=== PATIENT | male | born 1960 | race Caucasian/White ===

== ENCOUNTER 2020-05-28 16:25 | Emergency (ER) | payer MEDICARE, MEDICAID ==
[~2020-05-28] VITALS: Ht 175 cm; Wt 79.0 kg
--- NOTE | 2020-05-28 17:48 | ED Integumentary General ---
General Stated Complaint: POSS ABSCESS ON BOTTOM Source: patient Exam Limitations: no limitations History of Present Illness Date Seen by Provider: May 28, 2020 Time Seen by Provider: 17:44 Initial Comments To ER by private vehicle from [facility] in [place] with reports of a perineal abscess. He presented there today. He states that he is currently on an antibiotic for a dental infection but he doesn't know the name of it. He does have HIV and is compliant with medications. Dr. Salas called to report that he would be coming to the ER, she states that his viral load was undetectable and his CD 4 count was over a thousand. He denies any fevers or chills. He states that it has been draining. This will be the third time that he's had an episode like this, typically he gets these lanced. This is left buttocks/perineal region. He most recently used methamphetamine 1 week ago. Timing/Duration: constant Severity: moderate Associated Symptoms: denies symptoms Allergies and Home Medications Allergies Coded Allergies: Penicillins (Verified Allergy, Unknown, 05/28/20) Patient Home Medication List Home Medication List Reviewed: Yes Review of Systems Review of Systems Constitutional: see HPI; No chills, No fever EENTM: see HPI Respiratory: no symptoms reported Cardiovascular: no symptoms reported Genitourinary: no symptoms reported Musculoskeletal: no symptoms reported Skin: see HPI Psychiatric/Neurological: No Symptoms Reported Endocrine: No Symptoms Reported Hematologic/Lymphatic: No Symptoms Reported Past Xhlsxnd-Kwanho-Fhnzkk Hx Patient Social History Recent Foreign Travel: No Contact w/Someone Who Travel: No Physical Exam Vital Signs Vital Signs - First Documented 05/28/20 17:50 Temp 36.2 Pulse 81 Resp 20 B/P (MAP) 145/101 (116) Pulse Ox 95 O2 Delivery Room Air Capillary Refill : General Appearance: WD/WN, no apparent distress Neck: non-tender, full range of motion Respiratory: no respiratory distress, no accessory muscle use Gastrointestinal: normal bowel sounds, non tender, soft Neurologic/Psychiatric: alert, normal mood/affect, oriented x 3 Skin: normal color, warm/dry Skin Problem Character: abscess, other (left perineum there is a ping-pong ball sized area of erythema with 2 draining punctum. There was some necrotic tissue hanging out from these which was debrided with scissors. There is no moist drainage. There is no fluctuance to suggest a drainable abscess.) Progress/Results/Core Measures Results/Orders Lab Results Laboratory Tests Test 05/28/20 18:07 Range/Units White Blood Count 7.5 4.3-11.0 10^3/uL Red Blood Count 4.68 4.35-5.85 10^6/uL Hemoglobin 14.2 13.3-17.7 G/DL Hematocrit 42 40-54 % Mean Corpuscular Volume 89 80-99 FL Mean Corpuscular Hemoglobin 30 25-34 PG Mean Corpuscular Hemoglobin Concent 34 32-36 G/DL Red Cell Distribution Width 12.4 10.0-14.5 % Platelet Count 325 130-400 10^3/uL Mean Platelet Volume 8.4 7.4-10.4 FL Neutrophils (%) (Auto) 58 42-75 % Lymphocytes (%) (Auto) 27 12-44 % Monocytes (%) (Auto) 8 0-12 % Eosinophils (%) (Auto) 6 0-10 % Basophils (%) (Auto) 1 0-10 % Neutrophils # (Auto) 4.4 1.8-7.8 X 10^3 Lymphocytes # (Auto) 2.0 1.0-4.0 X 10^3 Monocytes # (Auto) 0.6 0.0-1.0 X 10^3 Eosinophils # (Auto) 0.5 H 0.0-0.3 10^3/uL Basophils # (Auto) 0.1 0.0-0.1 10^3/uL Sodium Level 134 L 135-145 MMOL/L Potassium Level 4.8 3.6-5.0 MMOL/L Chloride Level 100 98-107 MMOL/L Carbon Dioxide Level 25 21-32 MMOL/L Anion Gap 9 5-14 MMOL/L Blood Urea Nitrogen 20 H 7-18 MG/DL Creatinine 1.34 H 0.60-1.30 MG/DL Estimat Glomerular Filtration Rate 54 BUN/Creatinine Ratio 15 Glucose Level 142 H 70-105 MG/DL Lactic Acid Level 1.62 0.50-2.00 MMOL/L Calcium Level 9.2 8.5-10.1 MG/DL Corrected Calcium 9.5 8.5-10.1 MG/DL Total Bilirubin 0.2 0.1-1.0 MG/DL Aspartate Amino Transf (AST/SGOT) 19 5-34 U/L Alanine Aminotransferase (ALT/SGPT) 15 0-55 U/L Alkaline Phosphatase 102 40-136 U/L Total Protein 7.5 6.4-8.2 GM/DL Albumin 3.6 3.2-4.5 GM/DL My Orders Orders - SHAILESH CHILDRESS APRN Cbc With Automated Diff (05/28/20 17:42) Comprehensive Metabolic Panel (05/28/20 17:42) Lactic Acid Analyzer (05/28/20 17:42) Blood Culture (05/28/20 17:42) Ct Pelvis W (05/28/20 17:42) Wound Culture (05/28/20 17:42) Iohexol Injection (Omnipaque 350 Mg/Ml 1 (05/28/20 18:45) Received Contrast (Hold Metformin- Contr (05/28/20 18:45) Ns (Ivpb) (Sodium Chloride 0.9% Ivpb Bag (05/28/20 18:45) Iohexol Injection (Omnipaque 350 Mg/Ml 1 (05/28/20 19:00) Received Contrast (Hold Metformin- Contr (05/28/20 19:00) Ns (Ivpb) (Sodium Chloride 0.9% Ivpb Bag (05/28/20 19:00) Doxycycline Hyclate Tablet (Vibramycin T (05/28/20 19:30) Medications Given in ED Current Medications Medications Dose Ordered Sig/Moriah Route Start Time Stop Time Status Last Admin Dose Admin Iohexol 100 ml ONCE ONCE IV 05/28/20 18:45 05/28/20 18:51 DC 05/28/20 18:55 100 ML Sodium Chloride 100 ml ONCE ONCE IV 05/28/20 18:45 05/28/20 18:51 DC 05/28/20 18:55 100 ML Vital Signs/I&O 05/28/20 17:50 Temp 36.2 Pulse 81 Resp 20 B/P (MAP) 145/101 (116) Pulse Ox 95 O2 Delivery Room Air Diagnostic Imaging Diagonstic Imaging: CT Comments NAME: MICHAEL LOPEZ [facility] REC#: [id number] PT STATUS: REG ER : 1960 PHYSICIAN: SHAILESH CHILDRESS APRN ADMIT DATE: 05/28/20/ER Draft Date of Exam:05/28/20 CT PELVIS W PROCEDURE: CT pelvis with contrast. TECHNIQUE: Oral and intravenous contrast were administered with pelvic CT performed. Auto Exposure Controls were utilized during the CT exam to meet ALARA standards for radiation dose reduction. INDICATION: Perineal abscess. COMPARISON: None. FINDINGS: No perianal or perirectal fluid collections or significant inflammatory changes are identified. There is soft tissue stranding and a couple of tiny locules of gas along the left gluteal cleft distally which is not entirely included on the jjxrh-rp-ncyu. No fistulous tracts are identified by CT connecting these inflammatory changes to the anus or rectum. The visualized pelvic contents demonstrate no acute findings. No free intraperitoneal air/fluid, lymphadenopathy or evidence of bowel obstruction within the cncqx-pb-mifj. IMPRESSION: Inflammatory changes along the left gluteal fold are not entirely included in the hjebb-rl-cbek. There are a couple of locules of gas seen which could be due to abscess formation or a defect in the skin which is not seen within the rvvua-om-fsjl. No organized fluid collections are identified. These inflammatory changes appear to be separate from the anus and rectum with no fistulous connecting tracts identified. MRI would be more sensitive to evaluate a perirectal fistula. Dictated on workstation # [id number] Dict: 05/28/201917 Trans: 05/28/201924 [facility] [id number] Interpreted by: DANI OH MD Electronically signed by: Departure Impression Primary Impression: Cutaneous abscess of buttock Disposition: 01 HOME, SELF-CARE Condition: Stable Departure-Patient Inst. Decision time for Depature: 19:26 Referrals: SALINA SUAZO JULIE A MD (PCP/Family) Primary Care Physician Patient Instructions: ABSCESS Add. Discharge Instructions: 1. Call Dr. Suazo tomorrow to make an appointment to be seen. Take antibiotics as directed. Return to ER for any concerns. Scripts Doxycycline Hyclate (Doxycycline Hyclate) 100 Mg Tablet 100 MG PO BID, #20 TAB 0 Refills Prov: SHAILESH CHILDRESS APRN 05/28/20 Copy Copies To 1: SALINA SUAZO DO; JOSE SALAS MD, PETER J APRN May 28, 2020 17:48
[2020-05-28 18:16] LABS: BASOPHILS # (AUTO) 0.1 10^3/uL (0.0-0.1); BASOPHILS % (AUTO) 1 % (0-10); EOSINOPHILS # (AUTO) 0.5 10^3/uL (0.0-0.3); EOSINOPHILS % (AUTO) 6 % (0-10); HEMATOCRIT 42 % (40-54); HEMOGLOBIN 14.2 G/DL (13.3-17.7); LYMPHOCYTES % (AUTO) 27 % (12-44); MEAN CORPUSCULAR HEMOGLOBIN 30 PG (25-34); MEAN CORPUSCULAR HGB CONC 34 G/DL (32-36); MEAN CORPUSCULAR VOLUME 89 FL (80-99); MEAN PLATELET VOLUME 8.4 FL (7.4-10.4); MONOCYTES # (AUTO) 0.6 X 10^3 (0.0-1.0); MONOCYTES % (AUTO) 8 % (0-12); NEUTROPHILS # (AUTO) 4.4 X 10^3 (1.8-7.8); NEUTROPHILS % (AUTO) 58 % (42-75); PLATELET COUNT 325 10^3/uL (130-400); WHITE BLOOD COUNT 7.5 10^3/uL (4.3-11.0)
[2020-05-28 18:38] LABS: ALBUMIN 3.6 GM/DL (3.2-4.5); BILIRUBIN,TOTAL 0.2 MG/DL (0.1-1.0); CALCIUM 9.2 MG/DL (8.5-10.1); CREATININE SERUM 1.34 MG/DL (0.60-1.30); POTASSIUM 4.8 MMOL/L (3.6-5.0); TOTAL PROTEIN 7.5 GM/DL (6.4-8.2)
[2020-05-28] MEDS ORDERED: NS 100 ML (IVPB) BAG IV ONE ×2 (18:45→19:00)
[2020-05-28] MEDS ORDERED: IOHEXOL 350 MG/ML 100 ML (OMNIPAQUE 350) VIAL IV ONE ×2 (18:45→19:00)
[2020-05-28] MEDS ORDERED: HOLD METFORMIN - RECEIVED CONTRAST 20 ML VIAL IV SCH ×2 (18:45→19:00)
--- NOTE | 2020-05-28 19:26 | Diagnostic Imaging Report ---
PROCEDURE: CT pelvis with contrast. TECHNIQUE: Oral and intravenous contrast were administered with pelvic CT performed. Auto Exposure Controls were utilized during the CT exam to meet ALARA standards for radiation dose reduction. INDICATION: Perineal abscess. COMPARISON: None. FINDINGS: No perianal or perirectal fluid collections or significant inflammatory changes are identified. There is soft tissue stranding and a couple of tiny locules of gas along the left gluteal cleft distally which is not entirely included on the fbwtm-xi-yxqd. No fistulous tracts are identified by CT connecting these inflammatory changes to the anus or rectum. The visualized pelvic contents demonstrate no acute findings. No free intraperitoneal air/fluid, lymphadenopathy or evidence of bowel obstruction within the cpkql-zv-evxh. IMPRESSION: Inflammatory changes along the left gluteal fold are not entirely included in the kufqs-qx-snrz. There are a couple of locules of gas seen which could be due to abscess formation or a defect in the skin which is not seen within the tkrlu-di-wclk. No organized fluid collections are identified. These inflammatory changes appear to be separate from the anus and rectum with no fistulous connecting tracts identified. MRI would be more sensitive to evaluate a perirectal fistula. Dictated by: Dictated on workstation # [id number]
[2020-05-28] MEDS ORDERED: DOXY100T2 PO (19:29)
[2020-05-28] MEDS ORDERED: DOXYCYCLINE 100 MG (VIBRAMYCIN) TABLET PO SCH (19:30)
[2020-05-28 19:39] VITALS: BP 137/109
== END 2020-05-28 19:40 | disposition home or self-care (01) ==
LOC: ER 16:29
DX: L02.31 Cutaneous abscess of buttock (principal); B20 Human immunodeficiency virus [HIV] disease; Z88.0 Allergy status to penicillin
CPT/HCPCS: 36415; 72193; 80053; 83605; 85025; 87040; 87070; 87205

== ENCOUNTER 2021-10-12 14:17 | Emergency (ER) | payer MEDICARE, MEDICAID ==
[~2021-10-12] VITALS: Ht 165 cm; Wt 77.2 kg
[~2021-10-12 14:17] MED LIST: DOXY100T2 PO
[2021-10-12] MEDS ORDERED: CLINDAMYCIN 300 MG/2ML (CLEOCIN) VIAL IM STA (14:57)
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
[2021-10-12] MEDS ORDERED: CLIN-144 PO (15:04)
[2021-10-12] MEDS ORDERED: SULF1TAB38 PO (15:04)
[2021-10-12 15:36] VITALS: BP 151/89
== END 2021-10-12 15:36 | disposition home or self-care (01) ==
LOC: EDUNIT# 14:17 → ER 14:18
DX: K08.89 Other specified disorders of teeth and supporting structures (principal); L03.211 Cellulitis of face; I10 Essential (primary) hypertension; Z72.0 Tobacco use
CPT/HCPCS: 99284